=== PATIENT | female | born 1985 | race Caucasian/White ===

== ENCOUNTER 2018-03-23 13:08 | Emergency (ER) | payer OTHER ==
[~2018-03-23] VITALS: Ht 160 cm; Wt 68.2 kg
[2018-03-23] MEDS ORDERED: CLEO300C2 PO (15:44)
[2018-03-23 15:47] VITALS: BP 144/90
== END 2018-03-23 15:48 | disposition home or self-care (01) ==
LOC: M ED 13:08
DX: K04.7 Periapical abscess without sinus (principal); S02.5XXA Fracture of tooth (traumatic), initial encounter for closed fracture; X58.XXXA Exposure to other specified factors, initial encounter; Y92.89 Other specified places as the place of occurrence of the external cause; I10 Essential (primary) hypertension; F17.210 Nicotine dependence, cigarettes, uncomplicated; Z88.0 Allergy status to penicillin

== ENCOUNTER 2018-05-17 10:08 | Emergency (ER) | payer OTHER ==
[~2018-05-17] VITALS: Ht 160 cm; Wt 80.0 kg
[~2018-05-17 10:08] MED LIST: CLEO300C2 PO
[2018-05-17] MEDS ORDERED: LISI-542 PO (10:12)
[2018-05-17] MEDS ORDERED: NS 1,000 ML IV ONE (10:30)
[2018-05-17] MEDS ORDERED: KETOROLAC 30 MG/ML VIAL (J1885) IV ONE (10:30)
[2018-05-17] MEDS ORDERED: LISINOPRIL 5 MG TAB PO ONE (10:45)
[2018-05-17 11:08] LABS: HEMATOCRIT 43.6 % (36.0-47.0); HEMOGLOBIN 14.4 g/dl (12.0-15.5); MEAN CORPUSCULAR HEMOGLOBIN 30.3 pg (27.0-33.0); MEAN CORPUSCULAR VOLUME 91.6 fl (80.0-96.0); PLATELET COUNT, AUTOMATED 280 10^3/uL (150-450); RED BLOOD COUNT 4.76 10^6/uL (4.00-5.40); WHITE BLOOD COUNT 9.2 10^3/uL (4.0-10.0)
[2018-05-17 11:28] LABS: ERYTHROCYTE SEDIMENTATION RATE 5 mm/hr (0-20)
[2018-05-17 11:31] LABS: BLOOD UREA NITROGEN 11 MG/DL (7-18); C REACTIVE PROTEIN QUANTITATIV 0.72 MG/DL (0.00-0.30); CALCIUM LEVEL 9.1 MG/DL (8.5-10.1); CARBON DIOXIDE LEVEL 26 MEQ/L (21-32); CHLORIDE LEVEL 102 MEQ/L (98-107); CREATININE FOR GFR 0.72 MG/DL (0.55-1.30); GLOMERULAR FILTRATION RATE > 60.0 (>60); GLUCOSE, FASTING 98 MG/DL (70-100); POTASSIUM SERUM 4.3 MEQ/L (3.5-5.1); SODIUM LEVEL 137 MEQ/L (136-145)
[2018-05-17] MEDS ORDERED: ISOVUE-370 76% 100ML VIAL (Q9967) As Ordered ONE (11:41)
[2018-05-17] MEDS ORDERED: CLEO300C2 PO (12:12)
[2018-05-17] MEDS ORDERED: MAGICMW SSP (12:12)
[2018-05-17] MEDS ORDERED: IBUP-1022 PO (12:30)
[2018-05-17 12:31] VITALS: BP 140/86
--- NOTE | 2018-05-17 12:45 | REP ---
MAXILLOFACIAL CT WITH CONTRAST: HISTORY: Dysphagia. CONTRAST: Isovue 370, 75 mL. A B.B. was placed on the right side of the face superior to the right zygoma. Bilateral Hesham cells are present. The sinuses are clear. The ostiomeatal units are patent. The middle and inferior nasal turbinates are partially paradoxical. There is mild deviation of the nasal septum to the right. A spur is present arising from the right side of the nasal septum. The cribriform plate, medial vasquez if the orbits and optic canals are intact. The carotid canals form a segment of the posterolateral vasquez of the sphenoid sinus. The right sphenoid sinus septum inserts into the right internal carotid canal wall. The naso-, paulie-, and hypopharynx are normal in appearance. The salivary glands are normal in size and density. Small lymph nodes less than 1 cm in size are present in the internal jugular chains, posterior triangles and submandibular areas. Contents of the orbits are normal. Periapical lucency involves the first and second premolars and first molar tooth of the right mandible. A dental josr is present in the first molar tooth of the right mandible. IMPRESSION: 1. There is no acute or chronic sinusitis. 2. Periodontal disease as described above. Electronically Signed by Emanuel Simeon MD 05/17/2018 01:28 P
== END 2018-05-17 12:34 | disposition home or self-care (01) ==
LOC: M ED 10:08
DX: K08.89 Other specified disorders of teeth and supporting structures (principal); R22.0 Localized swelling, mass and lump, head; S02.5XXA Fracture of tooth (traumatic), initial encounter for closed fracture; X58.XXXA Exposure to other specified factors, initial encounter; Y92.89 Other specified places as the place of occurrence of the external cause; I10 Essential (primary) hypertension; Z88.0 Allergy status to penicillin; Z79.899 Other long term (current) drug therapy
CPT/HCPCS: 70487; 80048; 85027; 85652; 86140; 87040; 96374; 99283; J1885; Q9967